=== PATIENT | female | born 1950 | race Caucasian/White ===

== ENCOUNTER 2016-04-09 12:54 | Emergency (ER) | payer OTHER ==
[~2016-04-09] VITALS: Ht 154.9 cm; Wt 69.4 kg
[~2016-04-09 12:54] MED LIST: ALENDRONATE SOD70 MG PO; ASPERCREME 1035.4 GM TP; AUGMENTIN875 MG PO; CIPRO500 MG PO; DIOVAN HCT 31 TABLE1 PO; FELDENE20 MG PO; FLAGYL500 MG PO; GLUCOPHAGE500 MG PO; JANUVIA100 MG PO; LYRICA100 MG PO; LYRICA225 MG PO; MELOXICAM15 MG PO; MELOXICAM7.5 MG PO; METFORMIN HCL500 M1 PO; METFORMIN HCL500 MG PO; MOBIC15 MG PO; RANITIDINE HCL150 M1 PO; SIMVASTATIN20 MG PO; TRAMADOL HCL50 MG PO; TYLENOL EXTRA500 MG PO; TYLENOL WITH C1 EACH PO; ULTRAM50 MG PO; VITAMIN D400 UNI1 PO; VITAMIN D400 UNIT PO; ZANTAC150 MG PO; ZOCOR20 MG PO
[2016-04-09 14:19] LABS: HEMATOCRIT 39.3 % (36.0-46.0); MCH 28.9 PG (29.0-34.0); MCHC 34.9 G/DL (30.0-36.0); MCV 82.9 FL (83-99); MEAN PLAT.VOLUME 10.8 uM^3 (9.5-12.4); PLATELET COUNT 167 K/uL (156-360); RBC DIS.WIDTH-CV 13.8 % (11.8-14.6); RBC DIS.WIDTH-SD 40.6 % (39-53); RED BLOOD COUNT 4.74 M/uL (3.80-5.20); WHITE BLOOD COUNT 7.2 K/uL (4.1-10.2)
[2016-04-09 14:30] LABS: CHLORIDE 103 mEq/L (99-109); POTASSIUM 4.7 mEq/L (3.7-5.4); SODIUM 137 mEq/L (136-147)
[2016-04-09 14:32] LABS: GLUCOSE 204 mg/dL (70-99)
[2016-04-09 14:34] LABS: TOTAL BILIRUBIN 1.1 mg/dL (0.0-1.0)
[2016-04-09 14:35] LABS: ALKALINE PHOSPHATASE 90 IU/L (3-129)
[2016-04-09 14:36] LABS: GFR ESTIMATE (CALCULATED) > 59 mL/min/
[2016-04-09 14:37] LABS: UREA NITROGEN (BUN) 16 mg/dL (9-23)
[2016-04-09 14:39] LABS: LIPASE 38 U/L (1.0-51.0)
[2016-04-09 14:55] LABS: ANION GAP 15 MEQ/L (2-14)
[2016-04-09 16:14] LABS: ADD MIUA? YES; BILIRUBIN NEGATIVE; BLOOD NEGATIVE; COLOR YELLOW ((YELLOW)); GLUCOSE (STRIP) NEGATIVE; KETONES NEGATIVE; LEUKOCYTES SMALL; NITRITE NEGATIVE; PROTEIN (STRIP) NEGATIVE; UROBILINOGEN 0.2 MG/DL (0.2-1.0)
[2016-04-09 16:31] LABS: SPECIFIC GRAVITY 1.063 (1.000-1.030)
[2016-04-09 17:15] LABS: EPITHELIAL CELLS RARE; MUCUS NONE SEEN; RED BLOOD CELLS 0-5 /HPF (0-5); WHITE BLOOD CELLS 0-5 /HPF (0-5)
[2016-04-09 17:16] LABS: BACTERIA NONE SEEN; CASTS NONE SEEN /LPF; CRYSTALS NONE SEEN; UCUL ADDED? NO
[2016-04-09 17:56] LABS: TROP-I INTERPRETATION NEGATIVE; TROPONIN-I < 0.01 ng/mL (0.0-0.30)
[2016-04-09 18:54] VITALS: BP 174/77
== END 2016-04-09 18:55 | disposition home or self-care (01) ==
LOC: EME 12:54
DX: R10.30 Lower abdominal pain, unspecified (principal); J43.9 Emphysema, unspecified; J44.9 Chronic obstructive pulmonary disease, unspecified; I10 Essential (primary) hypertension; E78.5 Hyperlipidemia, unspecified; E11.9 Type 2 diabetes mellitus without complications; Z79.4 Long term (current) use of insulin; Z88.6 Allergy status to analgesic agent; Z88.2 Allergy status to sulfonamides; Z88.4 Allergy status to anesthetic agent
CPT/HCPCS: 74177; 80053; 81003; 83690; 84484; 85027; 93005; 99281; 99284; J7030

== ENCOUNTER 2016-07-25 12:54 | Emergency (ER) | payer OTHER ==
[~2016-07-25] VITALS: Ht 154.9 cm; Wt 69.0 kg
[2016-07-25 14:12] LABS: HEMATOCRIT 40.1 % (36.0-46.0); MCH 29.2 PG (29.0-34.0); MCHC 33.9 G/DL (30.0-36.0); MCV 86.2 FL (83-99); MEAN PLAT.VOLUME 10.7 uM^3 (9.5-12.4); PLATELET COUNT 182 K/uL (156-360); RBC DIS.WIDTH-CV 13.2 % (11.8-14.6); RBC DIS.WIDTH-SD 41.3 % (39-53); RED BLOOD COUNT 4.65 M/uL (3.80-5.20); WHITE BLOOD COUNT 7.2 K/uL (4.1-10.2)
[2016-07-25 14:21] LABS: CHLORIDE 100 mEq/L (99-109); POTASSIUM 4.1 mEq/L (3.7-5.4); SODIUM 138 mEq/L (136-147)
[2016-07-25 14:22] LABS: GLUCOSE 268 mg/dL (70-99)
[2016-07-25 14:24] LABS: ANION GAP 12 MEQ/L (2-14)
[2016-07-25 14:26] LABS: GFR ESTIMATE (CALCULATED) > 59 mL/min/
[2016-07-25 14:27] LABS: UREA NITROGEN (BUN) 11 mg/dL (9-23)
[2016-07-25 15:58] VITALS: BP 150/88
== END 2016-07-25 15:58 | disposition home or self-care (01) ==
LOC: EME 12:54
PROVIDERS: Physician Assistant Medical
DX: I82.5Z2 Chronic embolism and thrombosis of unspecified deep veins of left distal lower extremity (principal); E11.9 Type 2 diabetes mellitus without complications; J44.9 Chronic obstructive pulmonary disease, unspecified; E78.5 Hyperlipidemia, unspecified; I10 Essential (primary) hypertension; Z79.84 Long term (current) use of oral hypoglycemic drugs
CPT/HCPCS: 73610; 80048; 85027; 93971; 99281; 99284

== ENCOUNTER 2016-10-22 10:31 | Inpatient (IN) | payer OTHER ==
[~2016-10-22] VITALS: Ht 154.9 cm; Wt 67.3 kg
[2016-10-22 13:19] LABS: HEMATOCRIT 39.4 % (36.0-46.0); MCH 28.5 PG (29.0-34.0); MCHC 34.3 G/DL (30.0-36.0); MCV 83.1 FL (83-99); MEAN PLAT.VOLUME 10.6 uM^3 (9.5-12.4); PLATELET COUNT 175 K/uL (156-360); RBC DIS.WIDTH-CV 13.9 % (11.8-14.6); RBC DIS.WIDTH-SD 42.2 % (39-53); RED BLOOD COUNT 4.74 M/uL (3.80-5.20); WHITE BLOOD COUNT 7.7 K/uL (4.1-10.2)
[2016-10-22 13:30] LABS: CHLORIDE 103 mEq/L (99-109); POTASSIUM 3.8 mEq/L (3.7-5.4); SODIUM 137 mEq/L (136-147)
[2016-10-22 13:31] LABS: MAGNESIUM 1.9 mg/dL (1.3-2.7)
[2016-10-22 13:32] LABS: GLUCOSE 291 mg/dL (70-99)
[2016-10-22 13:33] LABS: ANION GAP 11 MEQ/L (2-14)
[2016-10-22 13:34] LABS: D-DIMER ELISA < 150.00 ng/mLDDU (<230)
[2016-10-22 13:36] LABS: GFR ESTIMATE (CALCULATED) > 59 mL/min/; UREA NITROGEN (BUN) 25 mg/dL (9-23)
[2016-10-22 13:38] LABS: CREATINE KINASE 44 IU/L (1-294)
[2016-10-22 13:41] LABS: TROP-I INTERPRETATION NEGATIVE; TROPONIN-I < 0.01 ng/mL (0.0-0.30)
[2016-10-22] MEDS ORDERED: LOW DOSE ASPIRI81 M1 PO (15:55)
[2016-10-22 17:44] LABS: HDL CHOLESTEROL 42 MG/DL (Desirable>=50); LDL CHOLESTEROL 104 mg/dL (Desirable<100); NON-HDL CHOLESTEROL 160 mg/dL (Desirable<160); TOTAL CHOLESTEROL 202 mg/dL (Desirable<200); TRIGLYCERIDES 281 MG/DL (Normal: <150)
[2016-10-22 19:34] VITALS: BP 135/73
[2016-10-22 23:32] LABS: POINT-OF-CARE METER ID UU13113717
[2016-10-22 23:55] VITALS: BP 131/65
[2016-10-23 04:12] VITALS: BP 119/53
[2016-10-23 05:58] LABS: HEMATOCRIT 36.1 % (36.0-46.0); MCH 28.5 PG (29.0-34.0); MCHC 33.5 G/DL (30.0-36.0); MCV 84.9 FL (83-99); MEAN PLAT.VOLUME 10.9 uM^3 (9.5-12.4); PLATELET COUNT 137 K/uL (156-360); RBC DIS.WIDTH-SD 43.1 % (39-53); RED BLOOD COUNT 4.25 M/uL (3.80-5.20); WHITE BLOOD COUNT 5.8 K/uL (4.1-10.2)
[2016-10-23 09:08] LABS: POINT-OF-CARE METER ID UU13113717
[2016-10-23 09:48] LABS: LYME DISEASE SEROLOGY SCREEN NEGATIVE (NEGATIVE)
[2016-10-23 10:33] VITALS: BP 133/74
[2016-10-23 11:48] LABS: POINT-OF-CARE METER ID UU13113717
[2016-10-23 14:18] LABS: Estimated Average Glucose 206 mg/dL (70-123); HEMOGLOBIN A1c (GLYCOHEMOGLOB) 8.8 % HGB (Below 5.7)
[2016-10-23 15:07] VITALS: BP 125/66
[2016-10-23 16:55] LABS: POINT-OF-CARE METER ID UU13113717
[2016-10-23 20:05] VITALS: BP 135/78
[2016-10-23 21:14] LABS: POINT-OF-CARE METER ID UU14174225
[2016-10-24 00:05] VITALS: BP 117/60
[2016-10-24 03:37] VITALS: BP 115/63
[2016-10-24 07:53] VITALS: BP 134/69
[2016-10-24] MEDS ORDERED: DICLOFENAC SODI75 MG PO (09:31)
[2016-10-24 11:39] VITALS: BP 140/67
[2016-10-24 12:28] LABS: POINT-OF-CARE METER ID UU13113717
[2016-10-24] MEDS ORDERED: PRAVASTATIN SOD80 MG PO (14:23)
[2016-10-24] MEDS ORDERED: METFORMIN HCL1000 MG PO (14:24)
== END 2016-10-24 15:29 | disposition home or self-care (01) | DRG 74 ==
LOC: EME 10:31 → EXP 10:31 → 5SOUTH 16:14 → EDOF 16:14 → ENRESERV 16:16 → 5SOUTH 17:22 → ENPENDDIS 10-24 → 5SOUTH 10-24 15:29
PROVIDERS: Internal Medicine; Physician Assistant
DX: G62.9 Polyneuropathy, unspecified (principal); E11.65 Type 2 diabetes mellitus with hyperglycemia; M76.32 Iliotibial band syndrome, left leg; R26.81 Unsteadiness on feet; E78.00 Pure hypercholesterolemia, unspecified; I10 Essential (primary) hypertension; J44.9 Chronic obstructive pulmonary disease, unspecified; M81.0 Age-related osteoporosis without current pathological fracture; Z91.81 History of falling; Z82.49 Family history of ischemic heart disease and other diseases of the circulatory system; Z83.3 Family history of diabetes mellitus; Z91.14 Patient's other noncompliance with medication regimen; Z86.718 Personal history of other venous thrombosis and embolism
CPT/HCPCS: 70450; 70551; 71010; 73564; 73700; 80048; 80061; 82550; 82948; 83036; 83735; 84484; 85027; 85379; 86618; 93005; 93306; 93880; 93971; 99281; 99283; J1815; J2405

== ENCOUNTER 2017-01-18 16:33 | Emergency (ER) | payer OTHER ==
[~2017-01-18] VITALS: Ht 154.9 cm; Wt 65.1 kg
[~2017-01-18 16:33] MED LIST changes: +DICLOFENAC SODI75 MG PO; +LOW DOSE ASPIRI81 M1 PO; +METFORMIN HCL1000 MG PO; +PRAVASTATIN SOD80 MG PO
[2017-01-18 17:11] LABS: MCH 29.5 PG (29.0-34.0); MCHC 34.6 G/DL (30.0-36.0); MCV 85.3 FL (83-99); MEAN PLAT.VOLUME 11.2 uM^3 (9.5-12.4); PLATELET COUNT 213 K/uL (156-360); RBC DIS.WIDTH-CV 13.3 % (11.8-14.6); RBC DIS.WIDTH-SD 41.9 % (39-53); RED BLOOD COUNT 4.34 M/uL (3.80-5.20)
[2017-01-18 17:24] LABS: CHLORIDE 96 mEq/L (99-109); POTASSIUM 3.3 mEq/L (3.7-5.4); SODIUM 136 mEq/L (136-147)
[2017-01-18 17:26] LABS: GLUCOSE 282 mg/dL (70-99)
[2017-01-18 17:28] LABS: ANION GAP 17 MEQ/L (2-14)
[2017-01-18 17:30] LABS: GFR ESTIMATE (CALCULATED) 43 mL/min/
[2017-01-18 17:31] LABS: UREA NITROGEN (BUN) 20 mg/dL (9-23)
[2017-01-18] MEDS ORDERED: VENTOLIN HFA18 GM IH (20:52)
[2017-01-18] MEDS ORDERED: ZITHROMAX Z-PA250 MG PO (20:52)
[2017-01-18] MEDS ORDERED: TESSALON PERLE100 MG PO (20:52)
[2017-01-18 21:54] VITALS: BP 103/71
== END 2017-01-18 21:55 | disposition home or self-care (01) ==
LOC: EME 16:33
DX: J44.0 Chronic obstructive pulmonary disease with (acute) lower respiratory infection (principal); J20.9 Acute bronchitis, unspecified; E78.5 Hyperlipidemia, unspecified; I10 Essential (primary) hypertension; Z79.82 Long term (current) use of aspirin; Z88.2 Allergy status to sulfonamides; Z88.5 Allergy status to narcotic agent; Z88.8 Allergy status to other drugs, medicaments and biological substances
CPT/HCPCS: 71020; 80048; 85027; 94640; 99281; 99284